=== PATIENT | male | born 2000 | race Caucasian/White ===

== ENCOUNTER → 2021-11-08 | Emergency (ER) | payer BC ==
[~2021-11-08] MED LIST: Acetaminophen 500 MG TAB ONE; Crotalidae Polyvalent Antivenin 1 GM VIAL ONE; diphenhydrAMINE 25 MG CAP ONE
[2021-11-08 22:40] LABS: #Eosinphils 0.2 10x3/uL (0.0-0.5); #Monocytes 0.7 10x3/uL (0.0-1.1); #Neutrophils 3.8 10x3/uL (1.5-8.4); %Basophils 0.3 % (0.0-2.0); %Eosinophils 2.7 % (0.0-6.0); %Lymphocytes 31.5 % (18.0-47.0); %Monocytes 10.1 % (0.0-10.0); %Neutrophils 55.1 % (40.0-75.0); Hemoglobin 14.3 g/dL (13.5-17.5); Mean Corpuscular HGB CONC 33.7 g/dL (32.0-36.0); Mean Corpuscular Hemoglobin 28.5 pg (27.0-33.0); Mean Corpuscular Volume 84.5 fl (81.2-95.1); Mean Platelet Volume 9.2 fl (7.4-10.4); Platelet Count 269 10x3/uL (150-450); RBC Distribution Width 12.9 % (11.5-14.5); Red Blood Cell (RBC) Count 5.02 10x6/uL (4.32-5.72); White Blood Cell (WBC) Count 6.9 10x3/uL (3.5-10.5)
[2021-11-08 22:55] LABS: ALT (SGPT) 22 U/L (8-55); AST (SGOT) 23 U/L (5-34); Albumin 4.5 g/dL (3.5-5.0); Alkaline Phosphatase 70 U/L (40-110); Anion Gap 12 mmol/L (10-20); BUN (Urea Nitrogen) 12 mg/dL (8.9-20.6); Bilirubin, Total 0.7 mg/dL (0.2-1.2); CK (CPK) 160 U/L (30-200); Calc. Creatinine Clearance 0 mL/min (70-130); Calcium 9.6 mg/dL (7.8-10.44); Carbon Dioxide 26 mmol/L (22-29); Chloride 103 mmol/L (98-107); Globulin 2.9 g/dL (2.4-3.5); Glucose 132 mg/dL (70-105); Potassium 3.7 mmol/L (3.5-5.1); Protein, Total 7.4 g/dL (6.0-8.3); Sodium 137 mmol/L (136-145)
[2021-11-08 22:57] LABS: PTT 26.7 sec (22.0-33.0); Prothrombin Time 11.1 sec (9.5-12.1)
== END ==
LOC: CSHERS 22:00
DX: T63.061A Toxic effect of venom of other North and South American snake, accidental (unintentional), initial encounter (principal)
CPT/HCPCS: 80053; 82550; 85025; 85384; 85610; 85730; 96365; J0840